=== PATIENT | male | born 1990 | race African-American/Black ===

== ENCOUNTER 2017-08-27 17:24 | Emergency (ER) | payer OTHER ==
[~2017-08-27] VITALS: Ht 172.7 cm; Wt 80.0 kg
[2017-08-27] MEDS: KETOROLAC 60MG/2ML VIAL IM ONE (20:31)
[2017-08-27] MEDS: ONDANSETRON HCL 4MG TABLET PO ONE (20:32)
[2017-08-27 20:34] VITALS: BP 130/76
== END 2017-08-27 21:18 | disposition home or self-care (01) ==
LOC: ER 18:01
DX: B34.9 Viral infection, unspecified (principal)
CPT/HCPCS: 96372; 99283; J1885; Q0162